=== PATIENT | female | born 1945 | race Two or more races ===

== ENCOUNTER 2018-03-05 15:30 | Inpatient (IN) | payer MEDICARE, BC ==
[~2018-03-05] VITALS: Ht 167.6 cm; Wt 78.9 kg
[2018-03-05 16:30] LABS: BASOPHILS # (AUTO) 0.1 /CMM (0.0-0.2); BASOPHILS % (AUTO) 0.7 % (0.0-2.0); EOSINOPHILS % (AUTO) 1.4 % (0.0-6.0); HEMATOCRIT 37 % (33-45); LYMPHOCYTES # (AUTO) 1.6 /CMM (0.8-4.8); MEAN CORPUSCULAR HGB CONC 35 g/dl (31.0-36.0); MEAN CORPUSCULAR VOLUME 86 fL (82-100); MONOCYTES # (AUTO) 0.8 /CMM (0.1-1.30); MONOCYTES % (AUTO) 8.6 % (2.0-12.0); NEUTROPHILS # (AUTO) 7.1 /CMM (1.8-8.9); NEUTROPHILS % (AUTO) 73.3 % (43.0-81.0); PLATELET COUNT (AUTO) 349 /CMM (150-450); RDW COEFFICIENT OF VARIATION 13.4 (11.5-15.0); RED BLOOD CELL COUNT(AUTO) 4.31 MIL/uL (4.0-5.2); WHITE BLOOD COUNT (AUTO) 9.7 K/uL (4.3-11.0)
[2018-03-05 16:34] LABS: CALCIUM, SERUM 9.5 mg/dL (8.5-10.1); CARBON DIOXIDE 29 mmol/L (21-32); CHLORIDE 101 mmol/L (98-107); CREATININE 0.7 mg/dL (0.6-1.3); GLUCOSE 116 mg/dL (74-106); POTASSIUM 3.7 mmol/L (3.5-5.1); SODIUM SERUM 136 mmol/L (136-145); UREA NITROGEN, BLOOD 13 mg/dL (7-18)
[2018-03-05 16:40] LABS: ALANINE AMINOTRANSFERASE 17 U/L (12-78); ALBUMIN 3.4 g/dL (3.4-5.0); ALCOHOL, BLOOD < 3 mg/dL (0-0); ALKALINE PHOSPHATASE 97 U/L (46-116); ASPARTATE AMINOTRANSFERASE 16 U/L (15-37); BILIRUBIN,DIRECT 0.1 mg/dL (0.0-0.2); BILIRUBIN,TOTAL 0.4 mg/dL (0.2-1.0); SALICYLATE 1.1 mg/dL (2.8-20.0); TOTAL PROTEIN, SERUM 7.3 g/dL (6.4-8.2)
[2018-03-05 16:41] LABS: ACETAMINOPHEN < 2 ug/ml (10-30)
[2018-03-05 16:52] LABS: THYROID STIMULATING HORMONE 1.258 uIU/mL (0.358-3.74)
--- NOTE | 2018-03-05 17:30 | NUR ---
PEDRITO CABELLO ON [address] [facility]
[2018-03-05] MEDS ORDERED: PANT40TA2 PO (17:57)
[2018-03-05] MEDS ORDERED: LISI1TAB9 PO (17:57)
[2018-03-05] MEDS ORDERED: TIOT18CA3 IH (17:57)
[2018-03-05] MEDS ORDERED: CLON0.5T12 PO (17:57)
[2018-03-05] MEDS ORDERED: CYCL10TA9 PO (17:57)
[2018-03-05] MEDS ORDERED: NITR50CA PO (17:57)
[2018-03-05] MEDS ORDERED: MONT10TA22 PO (17:57)
[2018-03-05] MEDS ORDERED: SERT50TA PO (17:57)
[2018-03-05] MEDS ORDERED: FEXO180T94 PO (17:57)
[2018-03-05] MEDS ORDERED: PALI156D IM (17:59)
[2018-03-05] MEDS ORDERED: MELO-107 PO (17:59)
--- NOTE | 2018-03-05 18:30 | NUR ---
GAVE REPORT TO K[facility]E [facility] ROOM 220-1 [address] DR ERICKSON . 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
[2018-03-05 19:13] LABS: APPEARANCE,URINE Clear (CLEAR); BILIRUBIN,URINE Negative (NEGATIVE); BLOOD, URINE Trace-intact Ery/uL (NEGATIVE); COLOR,URINE Yellow (YELLOW); KETONES,URINE Negative (NEGATIVE); LEUKOCYTE ESTERASE ,URINE Negative (NEGATIVE); NITRITE, URINE Negative (NEGATIVE); PH,URINE 6.5 (5.0-8.0); PROTEIN,URINE Negative (NEGATIVE); UGLUCOSE Negative (NEGATIVE); UROBILINOGEN,URINE 0.2 EU/dL (0.2)
[2018-03-05 19:28] LABS: BACTERIA,URINE None seen /HPF (None Seen); RBC,URINE 0-2 /HPF (0-2); WBC,URINE NONE SEEN /HPF (0-3)
[2018-03-05 19:29] LABS: SQUAMOUS EPITHELIAL CELL,UR None Seen /HPF (None Seen)
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
[2018-03-05 20:19] VITALS: BP 147/74
[2018-03-05] MEDS ORDERED: LORAZEPAM 0.5 MG TABLET PO PRN (21:00)
[2018-03-05] MEDS ORDERED: TEMAZEPAM 7.5 MG CAPSULE PO PRN (21:00)
[2018-03-05] MEDS ORDERED: MAG HYDROX/AL HYDROX/SIMETH 30 ML UDC PO PRN (21:00)
[2018-03-05] MEDS ORDERED: FLUT10.62 INH (21:36)
[2018-03-05] MEDS ORDERED: MELA10CA PO (21:40)
[2018-03-05] MEDS ORDERED: HYDROCODONE/APAP 5/325MG 1 EACH TABLET PO PRN (22:00)
[2018-03-06] MEDS ORDERED: ALBU8.5H8 INH
[2018-03-06 08:00] VITALS: BP 123/62
[2018-03-06] MEDS: PANTOPRAZOLE 40 MG TABLET.DR PO SCH (10:02)
[2018-03-06] MEDS: ACETAMINOPHEN 325 MG TABLET PO PRN (10:03)
[2018-03-06] MEDS: FLUTICASONE/VILANTEROL 1 EACH BLST.W.DEV IH SCH (10:06)
[2018-03-06 13:17] LABS: BASOPHILS % (AUTO) 0.4 % (0.0-2.0); EOSINOPHILS % (AUTO) 2.3 % (0.0-6.0); HEMATOCRIT 38 % (33-45); HEMOGLOBIN 12.9 g/dL (11.5-14.8); LYMPHOCYTES % (AUTO) 18.6 % (20.0-44.0); MEAN CORPUSCULAR HGB CONC 34 g/dl (31.0-36.0); MEAN CORPUSCULAR VOLUME 88 fL (82-100); MONOCYTES % (AUTO) 9.1 % (2.0-12.0); NEUTROPHILS # (AUTO) 7.6 /CMM (1.8-8.9); NEUTROPHILS % (AUTO) 69.6 % (43.0-81.0); PLATELET COUNT (AUTO) 345 /CMM (150-450); RDW COEFFICIENT OF VARIATION 14.1 (11.5-15.0); RED BLOOD CELL COUNT(AUTO) 4.34 MIL/uL (4.0-5.2)
[2018-03-06 13:34] LABS: ALANINE AMINOTRANSFERASE 19 U/L (12-78); ALBUMIN 3.3 g/dL (3.4-5.0); ALKALINE PHOSPHATASE 106 U/L (46-116); ASPARTATE AMINOTRANSFERASE 17 U/L (15-37); BILIRUBIN,TOTAL 0.5 mg/dL (0.2-1.0); CALCIUM, SERUM 9.4 mg/dL (8.5-10.1); CARBON DIOXIDE 27 mmol/L (21-32); CHLORIDE 98 mmol/L (98-107); CREATININE 0.8 mg/dL (0.6-1.3); GLUCOSE 101 mg/dL (74-106); POTASSIUM 4.1 mmol/L (3.5-5.1); SODIUM SERUM 131 mmol/L (136-145); UREA NITROGEN, BLOOD 14 mg/dL (7-18)
[2018-03-06 13:37] LABS: CHOLESTEROL 232 mg/dL (<200); HDL CHOLESTEROL 67 mg/dL (40-60); LDL 150 mg/dL (0-99); TRIGLYCERIDES 108 mg/dL (30-150)
--- NOTE | 2018-03-06 15:00 | NUR ---
GPS/RN Z GUARD ORDERED FOR SACRAL REDNESS.
[2018-03-06] MEDS ORDERED: Z GUARD REMEDY 2 OZ OINT TP PRN (15:30)
[2018-03-06 16:00] VITALS: BP 130/72
[2018-03-06] MEDS: SERTRALINE HCL 50 MG TABLET PO SCH (16:38)
[2018-03-06] MEDS: risperiDONE 1 MG TABLET PO SCH (16:39)
--- NOTE | 2018-03-06 17:26 | NUR ---
GPS/RN SPOKE WITH CONSTANZA FINE REGARDING POSSIBLE NEED FOR SWALLOW EVAL, NEW ORDER FOR SWALLOW EVAL. INPUT IN SYSTEM.
[2018-03-06 19:37] VITALS: BP 113/56
[2018-03-06] MEDS ORDERED: FLUTICASONE PROPIONATE INH SCH (20:00)
[2018-03-06] MEDS: IPRATROPIUM NEB FS 0.5 MG/2.5 ML AMPUL.NEB NEB SCH ×2 (20:30→23:30)
[2018-03-06] MEDS: clonazePAM 0.5 MG TABLET PO SCH (22:00)
[2018-03-06] MEDS: MAGNESIUM HYDROXIDE 30 ML UDC PO PRN (22:10)
[2018-03-07] MEDS ORDERED: PANTOPRAZOLE 40 MG TABLET.DR PO SCH (07:30)
[2018-03-07 08:00] VITALS: BP 116/56
[2018-03-07] MEDS: risperiDONE 1 MG TABLET PO SCH ×2 (08:51→16:15)
[2018-03-07] MEDS: CYCLOBENZAPRINE 10 MG TABLET PO SCH ×2 (08:51→16:15)
[2018-03-07] MEDS: MONTELUKAST SODIUM (10MG) 10 MG TABLET PO SCH (08:51)
[2018-03-07] MEDS: PANTOPRAZOLE 40 MG TABLET.DR PO SCH (08:51)
[2018-03-07] MEDS: HYDROCHLOROTHIAZIDE 25 MG TABLET PO SCH (08:52)
[2018-03-07] MEDS: SERTRALINE HCL 50 MG TABLET PO SCH (08:52)
[2018-03-07] MEDS: LISINOPRIL (10MG) 10 MG TABLET PO SCH (08:53)
[2018-03-07] MEDS: FLUTICASONE/VILANTEROL 1 EACH BLST.W.DEV IH SCH (08:54)
[2018-03-07] MEDS: FEXOFENADINE HCL (60 MG) 60 MG TABLET PO SCH (09:00)
[2018-03-07] MEDS: IPRATROPIUM NEB FS 0.5 MG/2.5 ML AMPUL.NEB NEB SCH ×3 (10:14→23:30)
[2018-03-07] MEDS: ACETAMINOPHEN 325 MG TABLET PO PRN ×2 (11:38→22:36)
[2018-03-07 15:55] VITALS: BP 128/78
[2018-03-07 20:18] VITALS: BP 124/72
[2018-03-07] MEDS: clonazePAM 0.5 MG TABLET PO SCH (21:31)
[2018-03-08] MEDS: PANTOPRAZOLE 40 MG TABLET.DR PO SCH (07:46)
[2018-03-08] MEDS: IPRATROPIUM NEB FS 0.5 MG/2.5 ML AMPUL.NEB NEB SCH ×3 (07:54→22:41)
[2018-03-08 08:00] VITALS: BP 122/60
[2018-03-08] MEDS: FLUTICASONE/VILANTEROL 1 EACH BLST.W.DEV IH SCH (09:23)
[2018-03-08] MEDS: risperiDONE 1 MG TABLET PO SCH ×2 (09:24→16:07)
[2018-03-08] MEDS: SERTRALINE HCL 50 MG TABLET PO SCH (09:24)
[2018-03-08] MEDS: HYDROCHLOROTHIAZIDE 25 MG TABLET PO SCH (09:25)
[2018-03-08] MEDS: LISINOPRIL (10MG) 10 MG TABLET PO SCH (09:25)
[2018-03-08] MEDS: MONTELUKAST SODIUM (10MG) 10 MG TABLET PO SCH (09:25)
[2018-03-08] MEDS: CYCLOBENZAPRINE 10 MG TABLET PO SCH ×2 (09:25→16:07)
[2018-03-08] MEDS: FEXOFENADINE HCL (60 MG) 60 MG TABLET PO SCH (11:41)
--- NOTE | 2018-03-08 15:17 | NUR ---
Initial Discharge Plan: Pt moved from [place] 6 months ago and resides at [address] [facility] [address] with her daughter, Harini Garcia; . Upon discharge pt would like to go to a SNF. SW will follow up with pt, family and treatment team to ensure pt is safely and adequately discharged.
[2018-03-08 16:00] VITALS: BP 117/60
[2018-03-08 20:10] VITALS: BP 102/52
[2018-03-08] MEDS: clonazePAM 0.5 MG TABLET PO SCH (22:23)
[2018-03-08] MEDS: ALBUTEROL FS 2.5 MG/0.5 ML VIAL.NEB NEB PRN (22:41)
[2018-03-08 23:00] VITALS: BP 105/63
[2018-03-09] MEDS: IPRATROPIUM NEB FS 0.5 MG/2.5 ML AMPUL.NEB NEB SCH ×2 (07:35→16:09)
[2018-03-09] MEDS: PANTOPRAZOLE 40 MG TABLET.DR PO SCH (08:10)
[2018-03-09] MEDS: CYCLOBENZAPRINE 10 MG TABLET PO SCH ×2 (08:11→16:24)
[2018-03-09] MEDS: MONTELUKAST SODIUM (10MG) 10 MG TABLET PO SCH (08:11)
[2018-03-09] MEDS: risperiDONE 1 MG TABLET PO SCH ×2 (08:11→16:24)
[2018-03-09] MEDS: LISINOPRIL (10MG) 10 MG TABLET PO SCH (08:11)
[2018-03-09] MEDS: SERTRALINE HCL 50 MG TABLET PO SCH (08:11)
[2018-03-09] MEDS: HYDROCHLOROTHIAZIDE 25 MG TABLET PO SCH (08:12)
[2018-03-09] MEDS: FEXOFENADINE HCL (60 MG) 60 MG TABLET PO SCH (08:14)
[2018-03-09] MEDS: FLUTICASONE/VILANTEROL 1 EACH BLST.W.DEV IH SCH (08:16)
[2018-03-09 08:18] VITALS: BP 130/63
--- NOTE | 2018-03-09 10:36 | NUR ---
ALBINO spoke to David pts son for discharge planning purposes (with pts consent). Per son and family they would like for pt to discharge to a SNF for a short period (2 wks) to continue receiving medical attention upon discharge. Pt is also in agreement with discharging to a SNF and stated, "I need some help in walking to get myself back on my feet for a short period." ALBINO will follow up by faxing inquiries to facilities.
[2018-03-09 15:52] VITALS: BP 121/60
[2018-03-09] MEDS: ACETAMINOPHEN 325 MG TABLET PO PRN (16:43)
--- NOTE | 2018-03-09 16:45 | NUR ---
GPS/RN-NOTES PATIENT GENERALIZE BODY PAIN AND REQUESTING FOR TYLENOL. TYLENOL 650MG P.O GIVEN PRN ORDER. WILL CONT. MONITORING FOR SAFETY.
--- NOTE | 2018-03-09 20:24 | NUR ---
PT TRANSFER TO MED SURG OVERFLOW WITH HER BELONGINGS AND ACCOMPANIED BY SITTER. REPORT GIVEN TO RN (NIYAH). V/S STABLE, NO SOB, RESPIRATION EVEN AND UNLABORED, NO COMPLAIN OF PAIN/DISCOMFORT AT THIS TIME. PT IN A STABLE CONDITION UPON TRANSFER.
--- NOTE | 2018-03-09 20:25 | NUR ---
MS RN NOTE: RECEIVED PATIENT FROM GPS, NO ACUTE DISTRESS NOTED. BREATHING EVEN AND UNLABORED, NO SOB NOTED. SITTER AT BEDSIDE. BED LOCKED AND IN LOWEST POSITION, CALL LIGHT IN REACH. WILL CONTINUE TO MONITOR.
[2018-03-09] MEDS: MAGNESIUM HYDROXIDE 30 ML UDC PO PRN (22:03)
[2018-03-09] MEDS: clonazePAM 0.5 MG TABLET PO SCH (22:03)
--- NOTE | 2018-03-10 00:05 | NUR ---
GPS OVERFLOW RN NOTE: PATIENT STARTED ON BIPAP/CPAP WITH RT SETUP. PATIENT TOLERATES SETTINGS WITHOUT COMPLICATIONS. WILL CONTINUE TO MONITOR.
[2018-03-10] MEDS: IPRATROPIUM NEB FS 0.5 MG/2.5 ML AMPUL.NEB NEB SCH ×4 (00:58→23:30)
--- NOTE | 2018-03-10 06:20 | NUR ---
MS RN NOTE: PATIENT RESTING IN BED, NO ACUTE DISTRESS NOTED. BREATHING EVEN AND UNLABORED, NO SOB NOTED. SITTER AT BEDSIDE. BED LOCKED AND IN LOWEST POSITION, CALL LIGHT IN REACH. WILL ENDORSE TO DAY NURSE TO CONTINUE WITH PLAN OF CARE.
--- NOTE | 2018-03-10 08:00 | NUR ---
MS RN AM NOTE: RECEIVED PATIENT FROM GPS, NO ACUTE DISTRESS NOTED. BREATHING EVEN AND UNLABORED, NO SOB NOTED. SITTER AT BEDSIDE. BED LOCKED AND IN LOWEST POSITION, CALL LIGHT IN REACH. WILL CONTINUE TO MONITOR.
[2018-03-10 08:25] VITALS: BP 126/67
[2018-03-10] MEDS: FLUTICASONE/VILANTEROL 1 EACH BLST.W.DEV IH SCH (09:38)
[2018-03-10] MEDS: FEXOFENADINE HCL (60 MG) 60 MG TABLET PO SCH (09:38)
[2018-03-10] MEDS: LISINOPRIL (10MG) 10 MG TABLET PO SCH (09:39)
[2018-03-10] MEDS: MONTELUKAST SODIUM (10MG) 10 MG TABLET PO SCH (09:39)
[2018-03-10] MEDS: risperiDONE 1 MG TABLET PO SCH ×2 (09:39→18:25)
[2018-03-10] MEDS: SERTRALINE HCL 50 MG TABLET PO SCH (09:39)
[2018-03-10] MEDS: HYDROCHLOROTHIAZIDE 25 MG TABLET PO SCH (09:40)
[2018-03-10] MEDS: ACETAMINOPHEN 325 MG TABLET PO PRN ×2 (09:40→21:13)
[2018-03-10] MEDS: CYCLOBENZAPRINE 10 MG TABLET PO SCH ×2 (09:40→18:25)
[2018-03-10] MEDS: PANTOPRAZOLE 40 MG TABLET.DR PO SCH (09:54)
--- NOTE | 2018-03-10 10:40 | NUR ---
SW faxed inquiries (face sheet, P&P, H&P, and med list) to [facility], [address] [place] [address]; and fax # , [facility], [address] [place] [address]; and fax # and [facility], [address] [place] [address]; and fax # on this date for placement purposes. SW will follow up to ensure pt is safely and adequately discharged.
--- NOTE | 2018-03-10 12:43 | NUR ---
ALBINO received confirmation from Florence from [facility], [address] [place] [address]; and fax # accepting pt. ALBINO contacted pts daughter, Lynda Garcia and left voicemail message informing of acceptance and asking her to reach out to facility for additional information. ALBINO will follow up to ensure pt is properly discharged.
[2018-03-10 16:00] VITALS: BP 105/51
--- NOTE | 2018-03-10 18:30 | NUR ---
TRANSFERRED PT BACK TO GPS ROOM 212A.WITH STABLE V/S.PT REMAINS ALERT AND ORIENTED X3-4.WITH FAMILY AT BEDSIDE.REPORT AND MEDS GIVEN TO BRYANGPS RN.
[2018-03-10 20:00] VITALS: BP 112/56
[2018-03-10] MEDS: clonazePAM 0.5 MG TABLET PO SCH (21:12)
[2018-03-10] MEDS: MAGNESIUM HYDROXIDE 30 ML UDC PO PRN (21:12)
[2018-03-11] MEDS: MENTHOL/CETYLPYRD (CEPACOL) 1 LOZ LOZENGE PO PRN (04:14)
[2018-03-11] MEDS: IPRATROPIUM NEB FS 0.5 MG/2.5 ML AMPUL.NEB NEB SCH ×2 (07:35→16:23)
[2018-03-11 07:57] VITALS: BP 141/60
[2018-03-11] MEDS: HYDROCHLOROTHIAZIDE 25 MG TABLET PO SCH (08:41)
[2018-03-11] MEDS: SERTRALINE HCL 50 MG TABLET PO SCH (08:41)
[2018-03-11] MEDS: MONTELUKAST SODIUM (10MG) 10 MG TABLET PO SCH (08:42)
[2018-03-11] MEDS: PANTOPRAZOLE 40 MG TABLET.DR PO SCH (08:42)
[2018-03-11] MEDS: CYCLOBENZAPRINE 10 MG TABLET PO SCH ×2 (08:42→16:14)
[2018-03-11] MEDS: LISINOPRIL (10MG) 10 MG TABLET PO SCH (08:42)
[2018-03-11] MEDS: risperiDONE 1 MG TABLET PO SCH ×3 (08:43→16:15)
[2018-03-11] MEDS: FLUTICASONE/VILANTEROL 1 EACH BLST.W.DEV IH SCH (08:43)
[2018-03-11] MEDS: FEXOFENADINE HCL (60 MG) 60 MG TABLET PO SCH (08:44)
[2018-03-11 16:14] VITALS: BP 119/60
[2018-03-11] MEDS: BENZTROPINE MESYLATE (1 MG) 1 MG TABLET PO SCH (16:14)
[2018-03-11] MEDS: ALBUTEROL FS 2.5 MG/0.5 ML VIAL.NEB NEB PRN (16:23)
[2018-03-11 20:00] VITALS: BP 117/52
[2018-03-11] MEDS: clonazePAM 0.5 MG TABLET PO SCH (21:45)
[2018-03-12] MEDS: IPRATROPIUM NEB FS 0.5 MG/2.5 ML AMPUL.NEB NEB SCH ×4 (00:30→22:03)
[2018-03-12 08:02] VITALS: BP 133/56
[2018-03-12] MEDS: MONTELUKAST SODIUM (10MG) 10 MG TABLET PO SCH (08:29)
[2018-03-12] MEDS: BENZTROPINE MESYLATE (1 MG) 1 MG TABLET PO SCH ×2 (08:30→17:08)
[2018-03-12] MEDS: SERTRALINE HCL 50 MG TABLET PO SCH (08:30)
[2018-03-12] MEDS: PANTOPRAZOLE 40 MG TABLET.DR PO SCH (08:30)
[2018-03-12] MEDS: CYCLOBENZAPRINE 10 MG TABLET PO SCH ×2 (08:30→17:07)
[2018-03-12] MEDS: risperiDONE 1 MG TABLET PO SCH ×3 (08:30→17:08)
[2018-03-12] MEDS: LISINOPRIL (10MG) 10 MG TABLET PO SCH (08:32)
[2018-03-12] MEDS: HYDROCHLOROTHIAZIDE 25 MG TABLET PO SCH (08:32)
[2018-03-12] MEDS: FLUTICASONE/VILANTEROL 1 EACH BLST.W.DEV IH SCH (08:33)
[2018-03-12] MEDS: FEXOFENADINE HCL (60 MG) 60 MG TABLET PO SCH (08:33)
[2018-03-12] MEDS: MENTHOL/CETYLPYRD (CEPACOL) 1 LOZ LOZENGE PO PRN (12:35)
[2018-03-12] MEDS: ALBUTEROL FS 2.5 MG/0.5 ML VIAL.NEB NEB PRN ×2 (14:57→22:03)
[2018-03-12 16:14] VITALS: BP 136/78
[2018-03-12 19:48] VITALS: BP_SYST 130; BP_SYST 131; BP_DIAS 69; BP_DIAS 71
[2018-03-12] MEDS: clonazePAM 0.5 MG TABLET PO SCH (21:23)
[2018-03-13] MEDS: MAGNESIUM HYDROXIDE 30 ML UDC PO PRN ×2 (00:53→21:37)
[2018-03-13] MEDS: IPRATROPIUM NEB FS 0.5 MG/2.5 ML AMPUL.NEB NEB SCH ×3 (07:44→23:30)
[2018-03-13] MEDS: ALBUTEROL FS 2.5 MG/0.5 ML VIAL.NEB NEB PRN ×2 (07:44→15:03)
[2018-03-13 08:00] VITALS: BP 121/77
[2018-03-13] MEDS: PANTOPRAZOLE 40 MG TABLET.DR PO SCH (08:22)
[2018-03-13] MEDS: MONTELUKAST SODIUM (10MG) 10 MG TABLET PO SCH (08:22)
[2018-03-13] MEDS: CYCLOBENZAPRINE 10 MG TABLET PO SCH ×2 (08:22→16:55)
[2018-03-13] MEDS: risperiDONE 1 MG TABLET PO SCH ×3 (08:22→16:55)
[2018-03-13] MEDS: SERTRALINE HCL 50 MG TABLET PO SCH (08:22)
[2018-03-13] MEDS: HYDROCHLOROTHIAZIDE 25 MG TABLET PO SCH (08:24)
[2018-03-13] MEDS: LISINOPRIL (10MG) 10 MG TABLET PO SCH (08:24)
[2018-03-13] MEDS: BENZTROPINE MESYLATE (1 MG) 1 MG TABLET PO SCH ×2 (08:28→16:55)
[2018-03-13] MEDS: FLUTICASONE/VILANTEROL 1 EACH BLST.W.DEV IH SCH (08:51)
[2018-03-13] MEDS: FEXOFENADINE HCL (60 MG) 60 MG TABLET PO SCH (08:51)
[2018-03-13 12:00] LABS: ALBUMIN 3.1 g/dL (3.4-5.0); BILIRUBIN,DIRECT 0.1 mg/dL (0.0-0.2); BILIRUBIN,TOTAL 0.3 mg/dL (0.2-1.0)
[2018-03-13] MEDS: ACETAMINOPHEN 325 MG TABLET PO PRN (12:31)
--- NOTE | 2018-03-13 12:36 | NUR ---
GPS/RN PATIENT REPORTS GENERALIZED PAIN, ADMINISTERED TYLENOL 650 MG PER PATIENT REQUEST, WILL CONTINUE TO MONITOR.
--- NOTE | 2018-03-13 12:47 | NUR ---
ALBINO followed up with Florence from [facility], [address] [place] [address]; and fax # to inquire if family had reached out to them. Per Florence, pts family accepted pts placement at [facility]. SW will follow up to ensure pt is safely and properly discharged. ,
[2018-03-13 16:00] VITALS: BP 149/74
[2018-03-13 19:35] VITALS: BP 144/82
[2018-03-13] MEDS: clonazePAM 0.5 MG TABLET PO SCH (21:35)
[2018-03-14 07:17] LABS: BASOPHILS # (AUTO) 0.1 /CMM (0.0-0.2); BASOPHILS % (AUTO) 0.7 % (0.0-2.0); EOSINOPHILS % (AUTO) 5.2 % (0.0-6.0); HEMATOCRIT 37 % (33-45); HEMOGLOBIN 12.3 g/dL (11.5-14.8); LYMPHOCYTES # (AUTO) 1.6 /CMM (0.8-4.8); LYMPHOCYTES % (AUTO) 17.5 % (20.0-44.0); MEAN CORPUSCULAR HGB CONC 34 g/dl (31.0-36.0); MEAN CORPUSCULAR VOLUME 88 fL (82-100); MONOCYTES % (AUTO) 10.9 % (2.0-12.0); NEUTROPHILS % (AUTO) 65.7 % (43.0-81.0); PLATELET COUNT (AUTO) 311 /CMM (150-450); RDW COEFFICIENT OF VARIATION 13.6 (11.5-15.0); RED BLOOD CELL COUNT(AUTO) 4.17 MIL/uL (4.0-5.2); WHITE BLOOD COUNT (AUTO) 9.1 K/uL (4.3-11.0)
[2018-03-14 07:27] LABS: CALCIUM, SERUM 9.1 mg/dL (8.5-10.1); CARBON DIOXIDE 29 mmol/L (21-32); CHLORIDE 97 mmol/L (98-107); CREATININE 0.7 mg/dL (0.6-1.3); GLUCOSE 108 mg/dL (74-106); PHOSPHORUS 3.2 mg/dL (2.5-4.9); POTASSIUM 3.9 mmol/L (3.5-5.1); SODIUM SERUM 134 mmol/L (136-145); UREA NITROGEN, BLOOD 16 mg/dL (7-18)
[2018-03-14 08:00] VITALS: BP 149/73
[2018-03-14] MEDS: ALBUTEROL FS 2.5 MG/0.5 ML VIAL.NEB NEB PRN (08:03)
[2018-03-14] MEDS: IPRATROPIUM NEB FS 0.5 MG/2.5 ML AMPUL.NEB NEB SCH (08:04)
[2018-03-14] MEDS: SERTRALINE HCL 50 MG TABLET PO SCH (08:19)
[2018-03-14] MEDS: MONTELUKAST SODIUM (10MG) 10 MG TABLET PO SCH (08:19)
[2018-03-14] MEDS: BENZTROPINE MESYLATE (1 MG) 1 MG TABLET PO SCH (08:20)
[2018-03-14] MEDS: risperiDONE 1 MG TABLET PO SCH (08:20)
[2018-03-14] MEDS: LISINOPRIL (10MG) 10 MG TABLET PO SCH (08:21)
[2018-03-14] MEDS: PANTOPRAZOLE 40 MG TABLET.DR PO SCH (08:21)
[2018-03-14 08:22] VITALS: BP 147/73
[2018-03-14] MEDS: HYDROCHLOROTHIAZIDE 25 MG TABLET PO SCH (08:22)
[2018-03-14] MEDS: FLUTICASONE/VILANTEROL 1 EACH BLST.W.DEV IH SCH (08:22)
[2018-03-14] MEDS: CYCLOBENZAPRINE 10 MG TABLET PO SCH (08:22)
[2018-03-14] MEDS: FEXOFENADINE HCL (60 MG) 60 MG TABLET PO SCH (08:34)
--- NOTE | 2018-03-14 09:49 | NUR ---
Discharge Plan: Patient will discharge to [facility], [address] [place] [address]; and fax # via ambulance (trip # [id number]) at 1:00 pm. Pt and pts daughterLynda have been notified and are in agreement with discharge plan. Pts physicians at the facility will be Supervisor Chlorine Liquefaction: Dr Saab; [address] [facility] [address]; and Psychiatrist: Dr. Mueller, [address] [place] [address]; .
--- NOTE | 2018-03-14 13:30 | NUR ---
GPS/RN PATIENT CLEARED FOR DISCHARGE TO [facility] BY DR ERICKSON AND DR CLEMENTE. MEDICATIONS RECONCILED BY BOTH DR'S. EXIT CARE, MEDICATIONS AND AFTERCARE PLAN EXPLAINED TO PATIENT, VERBALIZED UNDERSTANDING. BELONGINGS RETURNED, INCLUDING C-PAP MACHINE. D/C PHOTOS TAKEN, PATIENT DENIES SI/HI/AH UPON DISCHARGE, PSYCHIATRIC TREATMENT PLANS MET. REPORT GIVEN TO OMAR AT FACILITY. LEFT UNIT CALM, COOPERATIVE, NO DISTRESS NOTED WITH AMBULANCE TRANSPORT AT SIDE.
== END 2018-03-14 13:30 | DRG 885 ==
LOC: ER 15:32 → GPS 17:19 → MEDSG2 03-09 19:07 → GPSOV2 03-10 01:06 → GPS 03-10 18:58
PROVIDERS: ADMIT Psychiatry & Neurology Psychiatry; ATTEND Psychiatry & Neurology Psychiatry
DX: F25.9 Schizoaffective disorder, unspecified (principal); J44.9 Chronic obstructive pulmonary disease, unspecified; E66.2 Morbid (severe) obesity with alveolar hypoventilation; E87.1 Hypo-osmolality and hyponatremia; F22 Delusional disorders; F31.9 Bipolar disorder, unspecified; I10 Essential (primary) hypertension; Z88.5 Allergy status to narcotic agent; Z88.2 Allergy status to sulfonamides; Z79.899 Other long term (current) drug therapy; G47.00 Insomnia, unspecified; M19.90 Unspecified osteoarthritis, unspecified site; Z90.49 Acquired absence of other specified parts of digestive tract; Z87.01 Personal history of pneumonia (recurrent); G89.29 Other chronic pain; F29 Unspecified psychosis not due to a substance or known physiological condition; Z68.28 Body mass index [BMI] 28.0-28.9, adult; Z98.82 Breast implant status; Z98.51 Tubal ligation status
CPT/HCPCS: 36415; 71045-TC; 80048-TC; 80053-TC; 80061-TC; 80076-TC; 80305; 81000-TC; 82150-TC; 83735-TC; 84100-TC; 84443-TC; 85025-TC; 87081-TC; 92611-TC; 97110-TC; 97116-TC; 97530-TC; A4606; G0480; Z7610